=== PATIENT | female | born 1995 ===

== ENCOUNTER 2020-08-26 18:28 | Emergency (ER) | payer OTHER ==
[~2020-08-26] VITALS: Ht 165.1 cm; Wt 78.0 kg
[2020-08-26 20:28] VITALS: BP 143/84
== END 2020-08-26 21:55 | disposition home or self-care (01) ==
LOC: ER 18:37
DX: Z04.1 Encounter for examination and observation following transport accident (principal); O26.892 Other specified pregnancy related conditions, second trimester; Z3A.14 14 weeks gestation of pregnancy; V43.52XA Car driver injured in collision with other type car in traffic accident, initial encounter; Y93.89 Activity, other specified; Y92.89 Other specified places as the place of occurrence of the external cause; Y99.8 Other external cause status
CPT/HCPCS: 36415; 76805; 84702